=== PATIENT | female | born 1990 | race African-American/Black ===

== ENCOUNTER 2019-10-19 05:38 | Outpatient (CLI) | payer MEDICAID ==
[~2019-10-19] VITALS: Ht 157.5 cm; Wt 84.0 kg
[2019-10-19] MEDS ORDERED: ACYC-113 PO (09:09)
[2019-10-19] MEDS ORDERED: PREN1TAB10 PO (09:09)
== END 2019-10-19 09:26 | disposition home or self-care (01) ==
LOC: LDOP 05:38
PROVIDERS: ATTEND Obstetrics & Gynecology
DX: O26.893 Other specified pregnancy related conditions, third trimester (principal); R10.9 Unspecified abdominal pain; Z3A.38 38 weeks gestation of pregnancy
CPT/HCPCS: 59025; 99211; G0463

== ENCOUNTER 2019-10-29 11:56 | Inpatient (IN) | payer MEDICAID ==
[~2019-10-29] VITALS: Ht 157.5 cm; Wt 86.0 kg
[~2019-10-29 11:56] MED LIST: ACYC-113 PO; PREN1TAB10 PO
[2019-10-29] MEDS ORDERED: OXYTOCIN 30U/ 0.9% NaCL 500ML 500 ML IV PRN (12:02)
[2019-10-29] MEDS ORDERED: OXYTOCIN 30U/ 0.9% NaCL 500ML 500 ML IV ONE (12:02)
[2019-10-29] MEDS: D5%-LACTATED RINGERS 1,000 ML IV SCH ×2 (12:02→20:02)
[2019-10-29] MEDS ORDERED: CALCIUM CARBONATE 500 MG TAB.CHEW PO PRN (12:30)
[2019-10-29] MEDS ORDERED: FENTANYL PF 100 MCG/2ML IVPush PRN (12:30)
[2019-10-29] MEDS ORDERED: ONDANSETRON 2MG/ML, 2ML IVPush PRN ×2 (12:30→19:00)
[2019-10-29] MEDS ORDERED: TERBUTALINE 1 MG/ML, 1ML SQ PRN (12:30)
[2019-10-29] MEDS ORDERED: TERBUTALINE 1 MG/ML, 1ML IVPush PRN (12:30)
[2019-10-29] MEDS ORDERED: FENTANYL PF 100 MCG/2ML IV PRN (12:30)
[2019-10-29 12:41] LABS: BASOPHILS # (AUTO) 0.02 x10^3/uL (0-0.1); BASOPHILS % (AUTO) 0 % (0-1); EOSINOPHILS # (AUTO) 0.04 x10^3/uL (0-0.4); EOSINOPHILS % (AUTO) 1 % (1-7); LYMPHOCYTES # (AUTO) 1.83 x10^3/uL (1-3.4); LYMPHOCYTES % (AUTO) 26 % (22-44); MD NO; MEAN CORPUSCULAR HEMOGLOBIN 32.8 pg (27.0-34.8); MEAN CORPUSCULAR HGB CONC 33.7 g/dL (32.4-35.8); MEAN CORPUSCULAR VOLUME 97.3 fL (80-100); MONOCYTES # (AUTO) 0.88 x10^3/uL (0.2-0.8); MONOCYTES % (AUTO) 13 % (2-9); NEUTROPHILS # (AUTO) 4.33 x10^3/uL (1.8-6.8); NEUTROPHILS % (AUTO) 61 % (42-75); PLATELET COUNT 303 x10^3/uL (130-400); RED BLOOD COUNT 3.69 x10^6/uL (3.82-5.3); RED CELL DISTRIBUTION WIDTH 14.7 % (9.6-15.2)
[2019-10-29] MEDS ORDERED: NEWBORN KIT ONE (14:26)
[2019-10-29] MEDS ORDERED: FENTANYL/BUPIV./NS/PF 250 ML EPIDCONT SCH ×2 (14:27→18:48)
[2019-10-29] MEDS ORDERED: FENTANYL PF 500 MCG, BUPIVACAINE/PF 0.5%, 30ML 62.5 ML in SODIUM CHLORIDE 0.9% 177.5 ML EPIDCONT SCH (15:00)
[2019-10-29] MEDS: LACTATED RINGERS 1,000 ML IV SCH ×2 (17:41→18:31)
[2019-10-29] MEDS ORDERED: BUPIVACAINE 0.25% ONE (18:26)
[2019-10-29] MEDS ORDERED: LIDOCAINE/PF 1.5%-EPI 1:200K, 30ML ONE (18:29)
[2019-10-29] MEDS ORDERED: LACTATED RINGERS 1,000 ML IV SCH (18:48)
[2019-10-29] MEDS ORDERED: LACTATED RINGERS 1,000 ML IVBOLUS PRN (19:00)
[2019-10-29] MEDS ORDERED: EPHEDRINE 50 MG/ML, 1ML IVPush PRN (19:00)
[2019-10-29] MEDS ORDERED: NALOXONE 0.4 MG/ML, 1ML IVPush PRN (19:00)
[2019-10-29] MEDS ORDERED: DIPHENHYDRAMINE 50 MG/ML, 1ML IVPush PRN (19:00)
[2019-10-29] MEDS ORDERED: OXYTOCIN 30U/ 0.9% NaCL 500ML 500 ML ONE (23:51)
[2019-10-29] MEDS: OXYTOCIN 30U/ 0.9% NaCL 500ML 500 ML IV SCH (23:53)
[2019-10-30] MEDS ORDERED: ACETAMINOPHEN 325 MG TABLET PO PRN ×2
[2019-10-30] MEDS ORDERED: METHYLERGONOVINE 0.2 MG/ML IM PRN
[2019-10-30] MEDS ORDERED: ONDANSETRON 2MG/ML, 2ML IV PRN
[2019-10-30] MEDS ORDERED: OXYcodone/APAP 5/325MG TABLET PO PRN
[2019-10-30] MEDS ORDERED: SIMETHICONE 80 MG CHEW TAB PO PRN
[2019-10-30] MEDS ORDERED: OXYTOCIN 10 UNITS/ML, 1ML IM PRN
[2019-10-30] MEDS ORDERED: TRANEXAMIC ACID 100 MG/ML, 10ML IV ONE
[2019-10-30] MEDS ORDERED: MAGNESIUM HYDROXIDE 8%, 30ML UDC PO PRN
[2019-10-30 02:25] VITALS: BP 112/68
[2019-10-30] MEDS: IBUPROFEN 800 MG TABLET PO PRN ×2 (02:48→12:36)
[2019-10-30 04:36] VITALS: BP 102/62
[2019-10-30 06:01] LABS: BASOPHILS # (AUTO) 0.03 x10^3/uL (0-0.1); BASOPHILS % (AUTO) 0 % (0-1); EOSINOPHILS # (AUTO) 0.02 x10^3/uL (0-0.4); EOSINOPHILS % (AUTO) 0 % (1-7); LYMPHOCYTES # (AUTO) 2.13 x10^3/uL (1-3.4); LYMPHOCYTES % (AUTO) 20 % (22-44); MD NO; MEAN CORPUSCULAR HEMOGLOBIN 33.5 pg (27.0-34.8); MEAN CORPUSCULAR VOLUME 98.3 fL (80-100); MONOCYTES # (AUTO) 1.13 x10^3/uL (0.2-0.8); MONOCYTES % (AUTO) 11 % (2-9); NEUTROPHILS % (AUTO) 68 % (42-75); PLATELET COUNT 260 x10^3/uL (130-400); RED BLOOD COUNT 3.28 x10^6/uL (3.82-5.3); RED CELL DISTRIBUTION WIDTH 14.7 % (9.6-15.2)
[2019-10-30] MEDS: DOCUSATE 100 MG CAPSULE PO PRN ×2 (08:14→23:20)
[2019-10-30] MEDS: PRENATAL VIT/IRON/FA 1 EACH TABLET PO SCH (08:14)
[2019-10-30 08:31] VITALS: BP_SYST 110; BP_SYST 111; BP_DIAS 63; BP_DIAS 64
[2019-10-30] MEDS: OXYTOCIN 30U/ 0.9% NaCL 500ML 500 ML IV SCH ×2 (09:48→19:48)
[2019-10-30] MEDS: OXYcodone/APAP 5/325MG TABLET PO PRN ×2 (10:34→17:53)
[2019-10-30 11:50] VITALS: BP 119/71
[2019-10-30 16:10] VITALS: BP 100/62
[2019-10-30] MEDS ORDERED: RHOGAM FROM BLOOD BANK 1 NOTE EA IM/IV ONE (18:30)
[2019-10-30 20:04] VITALS: BP 108/70
[2019-10-31] MEDS: IBUPROFEN 800 MG TABLET PO PRN ×2 (00:34→08:18)
[2019-10-31 00:38] VITALS: BP 113/71
[2019-10-31] MEDS: OXYcodone/APAP 5/325MG TABLET PO PRN ×4 (03:53→12:57)
[2019-10-31] MEDS: OXYTOCIN 30U/ 0.9% NaCL 500ML 500 ML IV SCH (05:48)
[2019-10-31 07:55] VITALS: BP 111/70
[2019-10-31] MEDS: DOCUSATE 100 MG CAPSULE PO PRN (08:18)
[2019-10-31] MEDS: PRENATAL VIT/IRON/FA 1 EACH TABLET PO SCH (08:18)
[2019-10-31] MEDS ORDERED: OXYC-302 PO (11:35)
[2019-10-31] MEDS ORDERED: IBUP-1223 PO (11:35)
== END 2019-10-31 18:29 | disposition home or self-care (01) | DRG 807 ==
LOC: LDIP 11:56 → 2NW 10-30 06:57
PROVIDERS: ADMIT Obstetrics & Gynecology; ATTEND Obstetrics & Gynecology
PROC: 10E0XZZ Delivery of Products of Conception, External Approach (ICD-10-PCS; principal; 2019-10-29)
PROC: 0UQGXZZ Repair Vagina, External Approach (ICD-10-PCS; 2019-10-29)
PROC: 10907ZC Drainage of Amniotic Fluid, Therapeutic from Products of Conception, Via Natural or Artificial Opening (ICD-10-PCS; 2019-10-29)
PROC: 00HU33Z Insertion of Infusion Device into Spinal Canal, Percutaneous Approach (ICD-10-PCS; 2019-10-29)
PROC: 3E0R3BZ Introduction of Anesthetic Agent into Spinal Canal, Percutaneous Approach (ICD-10-PCS; 2019-10-29)
DX: O99.62 Diseases of the digestive system complicating childbirth (principal); Z37.0 Single live birth; K21.9 Gastro-esophageal reflux disease without esophagitis; O71.4 Obstetric high vaginal laceration alone; Z3A.39 39 weeks gestation of pregnancy; Z91.040 Latex allergy status; Z88.5 Allergy status to narcotic agent
CPT/HCPCS: 36415; J3490; S0020; 85025; 85461; 86592; 86850; 86870; 86900; 86922; 86923; G0378; J2790; J3010; J2590; J7050; J7120

== ENCOUNTER 2020-06-04 14:48 | Emergency (ER) | payer MEDICAID ==
[~2020-06-04] VITALS: Ht 157.5 cm; Wt 80.9 kg
[~2020-06-04 14:48] MED LIST changes: +IBUP-1223 PO; +OXYC-302 PO
--- NOTE | 2020-06-04 17:24 | NUR ---
PT CALLED FOR REPEAT VITAS. NO ANSWER WHEN CALLED @ [phone].
--- NOTE | 2020-06-04 18:50 | NUR ---
LATE ENTRY FOR 1610 NA X 2
--- NOTE | 2020-06-04 19:20 | NUR ---
ERP TO BEDSIDE TO UPDATE PT ON POC. PT LAYING IN BED, NADN, ALL NEEDS MET AT THIS TIME.
[2020-06-04 19:21] VITALS: BP 118/73
== END 2020-06-04 19:30 | disposition home or self-care (01) ==
LOC: ED 19:23
DX: K04.7 Periapical abscess without sinus (principal); K02.9 Dental caries, unspecified
CPT/HCPCS: 99283

== ENCOUNTER 2021-05-08 14:16 | Emergency (ER) | payer MEDICAID ==
[~2021-05-08] VITALS: Ht 157.5 cm; Wt 76.6 kg
[~2021-05-08 14:16] MED LIST changes: -ACYC-113 PO; +ACYC200C13 PO; -OXYC-302 PO; +OXYC1TAB14 PO
[2021-05-08 14:29] VITALS: BP 96/63
== END 2021-05-08 16:20 | disposition home or self-care (01) ==
LOC: ED 14:30
DX: J06.9 Acute upper respiratory infection, unspecified (principal); Z20.822 Contact with and (suspected) exposure to COVID-19; R50.9 Fever, unspecified
CPT/HCPCS: 71045; 99284; U0003; U0005